=== PATIENT | female | born 1955 | race Two or more races ===

== ENCOUNTER 2024-05-22 18:12 | Emergency (ER) | payer OTHER ==
[~2024-05-22] VITALS: Ht 167.6 cm; Wt 85.0 kg
[2024-05-22 19:32] VITALS: TEMP 97.3
[2024-05-22] MEDS ORDERED: LEVO150 PO (19:55)
[2024-05-22] MEDS ORDERED: HYDR10TA31 PO (19:55)
[2024-05-22] MEDS ORDERED: HYDR25TA2 PO (19:55)
[2024-05-22] MEDS ORDERED: CALC1CAP22 PO (19:55)
[2024-05-22] MEDS ORDERED: OLOP5DRO28 OU (19:55)
[2024-05-22] MEDS ORDERED: INSNOV SQ (19:55)
[2024-05-22] MEDS ORDERED: BACL10TA PO (19:55)
[2024-05-22] MEDS ORDERED: AMLO-257 PO (19:55)
[2024-05-22] MEDS ORDERED: ATOR40TA28 PO (19:55)
[2024-05-22] MEDS ORDERED: SENN-309 PO (19:55)
[2024-05-22] MEDS ORDERED: OMEG-114 PO (19:55)
[2024-05-22] MEDS ORDERED: DICL100G60 TP (19:55)
[2024-05-22] MEDS ORDERED: MIRT-89 PO (19:55)
[2024-05-22] MEDS ORDERED: DULO-113 PO (19:55)
[2024-05-22] MEDS ORDERED: ASPI-1450 PO (19:55)
[2024-05-22 21:10] LABS: BASOPHILS % (AUTO) 0.7 % (0.0-2.0); EOSINOPHILS % (AUTO) 1.1 % (1.0-6.0); HEMATOCRIT 31.2 % (36-46); HEMOGLOBIN 10.4 g/dL (12.0-16.0); LYMPHOCYTES # (AUTO) 2.4 K/uL (1.0-4.8); LYMPHOCYTES % (AUTO) 22.9 % (22.0-44.0); MEAN CORPUSCULAR HEMOGLOBIN 30.4 pg (26.0-34.0); MEAN CORPUSCULAR HGB CONC 33.4 G/dL (31.0-37.0); MEAN CORPUSCULAR VOLUME 91 fL (80-100); MONOCYTES # (AUTO) 0.6 K/uL (0.1-1.0); MONOCYTES % (AUTO) 5.4 % (2.0-9.0); NEUTROPHILS # (AUTO) 7.2 K/uL (1.8-7.7); NEUTROPHILS % (AUTO) 69.9 % (40.0-70.0); PLATELET COUNT (AUTO) 545 K/uL (150-450); RED BLOOD CELL COUNT(AUTO) 3.44 MIL/uL (4.00-5.20); RED CELL DISTRIBUTION WIDTH 13.4 % (11.5-14.5); WHITE BLOOD COUNT (AUTO) 10.3 K/uL (4.5-11.0)
[2024-05-22 21:11] LABS: APPEARANCE,URINE HAZY (CLEAR); BILIRUBIN,URINE NEGATIVE (NEGATIVE); COLOR,URINE LIGHT YELLOW (YELLOW); GLUCOSE, URINE (UA) NEGATIVE (NEGATIVE); KETONES,URINE NEGATIVE (NEGATIVE); LEUKOCYTE ESTERASE ,URINE LARGE (NEGATIVE); NITRATE,URINE NEGATIVE (NEGATIVE); OCCULT BLOOD,URINE NEGATIVE (NEGATIVE); PH,URINE 7.5 (5.0-8.0); PH,URINE DRUG SCREEN 7.5 (5.0-8.0); PROTEIN,URINE TRACE mg/dL (NEGATIVE); SPECIFIC GRAVITIY, URINE 1.009 (1.003-1.030); UROBILINOGEN,URINE <=1.0 mg/dL (<=1.0)
[2024-05-22 21:14] LABS: ANION GAP 8 mmol/L (8-16); CALCIUM, TOTAL 9.7 mg/dL (8.8-10.5); CARBON DIOXIDE 27 mmol/L (22-29); CHLORIDE 97 mmol/L (98-107); CREATININE 0.72 mg/dL (0.60-1.30); GLOMERULAR FILTR. RATE CALC > 60 mL/min (>60); GLUCOSE,RANDOM 155 mg/dL (70-110); POTASSIUM 3.9 mmol/L (3.5-5.1); SODIUM SERUM 132 mmol/L (136-145); UREA NITROGEN, BLOOD 15 mg/dL (7-18)
[2024-05-22 21:16] LABS: AMPHET/METH SCREEN,URINE NEGATIVE (NEGATIVE); BARBITURATE SCREEN, URINE NEGATIVE (NEGATIVE); BENZODIAZEPINES SCREEN,URINE NEGATIVE (NEGATIVE); CANNABINOID SCREEN,URINE NEGATIVE (NEGATIVE); COCAINE SCREEN,URINE NEGATIVE (NEGATIVE); METHADONE SCREEN, URINE NEGATIVE (NEGATIVE); OPIATE SCREEN,URINE NEGATIVE (NEGATIVE); PHENCYCLIDINE SCREEN,URINE NEGATIVE (NEGATIVE)
[2024-05-22 21:18] LABS: ALCOHOL, URINE DRUG SCREEN NEGATIVE (NEGATIVE)
[2024-05-22 21:18] LABS: ALCOHOL, BLOOD (SERUM) < 3 mg/dL (0-10)
[2024-05-22 21:38] LABS: BACTERIA,URINE Moderate /HPF (None Seen); RBC,URINE 0-2 /HPF (0-2)
[2024-05-22 21:39] LABS: AMORPHOUS SEDIMENT,UR Many /LPF (None Seen)
[2024-05-22 22:23] LABS: COVID AG,FIA SOURCE NASAL SWAB
[2024-05-22] MEDS ORDERED: CEPH-558 PO (22:31)
[2024-05-22] MEDS: LORazepam 1 MG TABLET PO ONE (22:36)
[2024-05-22] MEDS: CEPHALEXIN MONOHYDRATE 500 MG CAPSULE PO ONE (22:36)
[2024-05-22 22:47] LABS: SARS-COV2 (COVID) ANTIGEN,FIA Negative (Negative)
[2024-05-22 22:56] VITALS: BP 123/71; PULSE 90; RESP 18
== END 2024-05-22 23:57 | disposition home or self-care (01) ==
LOC: EMS 18:12
DX: N39.0 Urinary tract infection, site not specified (principal); R45.1 Restlessness and agitation; E11.9 Type 2 diabetes mellitus without complications; E78.00 Pure hypercholesterolemia, unspecified; I10 Essential (primary) hypertension; F32.A Depression, unspecified; Z86.73 Personal history of transient ischemic attack (TIA), and cerebral infarction without residual deficits; Z90.710 Acquired absence of both cervix and uterus; Z20.822 Contact with and (suspected) exposure to COVID-19
CPT/HCPCS: 99283; 87426; 80048; 85025; 36415; 87086; 87186; 80307; 81001; G0480